=== PATIENT | female | born 1960 | race Caucasian/White ===

== ENCOUNTER 2021-05-21 09:08 | Inpatient (IN) | payer OTHER ==
[~2021-05-21] VITALS: Ht 162.6 cm; Wt 120.7 kg
[2021-05-21] MEDS ORDERED: LOSA50 PO (09:37)
[2021-05-21] MEDS ORDERED: AMLO5 PO (09:38)
[2021-05-21 10:38] LABS: Influenza A, PCR NEGATIVE (NEGATIVE); Influenza B, PCR NEGATIVE (NEGATIVE); Resp Syncytial Virus, PCR NEGATIVE (NEGATIVE)
[2021-05-21 10:41] LABS: SARS-Cov-2 (COVID-19) PCR, MMC POSITIVE (NEGATIVE)
[2021-05-21 11:17] LABS: BASOPHILS ABSOLUTE AUTO 0.05 K/mm3 (0.00-0.23); BASOPHILS PERCENT AUTO 0 % (0-2); EOSINOPHILS ABSOLUTE AUTO 0.01 K/mm3 (0.00-0.68); EOSINOPHILS PERCENT AUTO 0 % (0-6); Hematocrit 44.2 % (33.0-51.0); Hemoglobin 14.5 g/dL (11.5-16.0); IMMATURE GRAN ABSOLUTE AUTO 0.09 K/mm3 (0.00-0.10); IMMATURE GRAN PERCENT AUTO 1 % (0-1); LYMPHOCYTES ABSOLUTE AUTO 1.01 K/mm3 (0.84-5.20); LYMPHOCYTES PERCENT AUTO 6 % (21-46); MONOCYTES ABSOLUTE AUTO 0.64 K/mm3 (0.16-1.47); MONOCYTES PERCENT AUTO 4 % (4-13); Mean Corpuscular HGB 29.1 pg (26.0-34.0); Mean Corpuscular HGB Conc 32.8 g/dL (31.5-36.5); Mean Corpuscular Volume 89 fL (80-100); Mean Platelet Volume 10.8 fL (9.1-12.4); NEUTROPHILS ABSOLUTE AUTO 14.24 K/mm3 (1.96-9.15); NEUTROPHILS PERCENT AUTO 89 % (41-73); Platelet Count 362 K/mm3 (150-400); RDW Coefficient Variation 12.4 % (11.7-14.2); RDW Standard Deviation 40.2 fL (35.1-46.3); Red Blood Cell Count 4.99 M/mm3 (3.80-5.20); White Blood Cell Count 16.04 K/mm3 (4.00-11.30)
[2021-05-21 11:37] LABS: Alanine Aminotransfer (ALT/SGP 26 U/L (12-78); Albumin, Blood 3.7 g/dL (3.4-5.0); Alk Phos 93 U/L (50-136); Anion Gap 8 mmol/L (6-16); Aspartate Aminotrans (AST/SGOT 15 U/L (12-37); Bilirubin, Total 0.4 mg/dL (0.1-1.0); Blood Urea Nitrogen 9 mg/dL (8-24); Bun/Creatinine Ratio 13.6 (12.0-20.0); CO2, Blood 23 mmol/L (21-32); Calcium, Blood 9.8 mg/dL (8.5-10.1); Chloride, Blood 108 mmol/L (98-108); Creatinine, Blood 0.66 mg/dL (0.40-1.00); Globulin, Blood 3.6 g/dL (2.2-4.0); Glomerular Filtration Rate >60 (60-); Glucose, Blood 180 mg/dL (70-99); Potassium, Blood 4.1 mmol/L (3.5-5.5); Sodium, Blood 139 mmol/L (136-145); Total Protein, Blood 7.3 g/dL (6.4-8.2)
[2021-05-21 14:07] LABS: Anti-Xa UFH, PHA Monitoring <0.10 IU/mL; International Normalized Ratio 1.14; Prothrombin Time Results 11.9 Sec (9.7-11.5)
--- NOTE | 2021-05-22 05:34 | NUR ---
SHIFT SUMMARY PT ALERT AND ORIENTED. DENIES CHEST PAIN/PRESSURE. VITAL ARE STABLE AND IS ON ROOM AIR WITH SATS ABOVE 92%. PT DID HAVE LEFT UPPER BACK PAIN POST OP AND WAS MEDICATED WITH MED PER EMAR. FEM STOP WAS OFF AT 030 AND RIGHT FEM SITE WNL, RANJAN DRESSING APPLIED. TR BAND DEFLATED AND TEGADERM APPLIED AT 0040, RIGHT RADIAL SITE WNL. CALL LIGHT IS WITHIN REACH.
[2021-05-22] MEDS ORDERED: ATOR80 PO (12:15)
[2021-05-22] MEDS ORDERED: ASPI81CH PO (12:15)
[2021-05-22] MEDS ORDERED: CLOP75 PO (12:16)
[2021-05-22] MEDS ORDERED: Isosorbide Mono30 MG PO (12:17)
[2021-05-22] MEDS ORDERED: METO50ER PO (12:17)
== END 2021-05-22 12:50 | disposition home or self-care (01) | DRG 246 ==
LOC: ER 09:08 → PCU 13:06
PROVIDERS: Physician Assistant; ADMIT Internal Medicine
PROC: 027035Z Dilation of Coronary Artery, One Artery with Two Drug-eluting Intraluminal Devices, Percutaneous Approach (ICD-10-PCS; principal; 2021-05-21)
PROC: 4A023N7 Measurement of Cardiac Sampling and Pressure, Left Heart, Percutaneous Approach (ICD-10-PCS; 2021-05-21)
PROC: B2111ZZ Fluoroscopy of Multiple Coronary Arteries using Low Osmolar Contrast (ICD-10-PCS; 2021-05-21)
PROC: 8E0ZXY6 Isolation (ICD-10-PCS; 2021-05-21)
DX: I21.4 Non-ST elevation (NSTEMI) myocardial infarction (principal); U07.1 COVID-19; Z68.42 Body mass index [BMI] 45.0-49.9, adult; I25.10 Atherosclerotic heart disease of native coronary artery without angina pectoris; D72.829 Elevated white blood cell count, unspecified; I10 Essential (primary) hypertension; R73.9 Hyperglycemia, unspecified; E78.5 Hyperlipidemia, unspecified; E66.01 Morbid (severe) obesity due to excess calories; Z79.82 Long term (current) use of aspirin; Z79.899 Other long term (current) drug therapy; Z88.2 Allergy status to sulfonamides
CPT/HCPCS: 0241U; 36415; 71045; 76937; 80053; 83690; 83880; 84145; 84443; 84484; 85025; 85347; 85520; 85610; 86850; 86900; 86901; 93005; 93010; 93454; 96374; 96375; 99152; 99153; 99285-25; A9270; C1725; C1760; C1769; C1874; C1887; C1894; C8929; C9600; C9601; J0360; J0690; J1644; J2250; J2270; J2405; J3010; J7030; J7050; Q9957; Q9967

== ENCOUNTER 2023-01-27 11:09 | Emergency (ER) | payer OTHER ==
[~2023-01-27] VITALS: Ht 162.6 cm; Wt 108.9 kg
[~2023-01-27 11:09] MED LIST: AMLO5 PO; ASPI81CH PO; ATOR80 PO; CLOP75 PO; Isosorbide Mono30 MG PO; LOSA50 PO; METO50ER PO
[2023-01-27 11:15] VITALS: BP 155/98
[2023-01-27] MEDS ORDERED: MUPIROCIN1 G2 TOP (12:12)
== END 2023-01-27 12:17 | disposition home or self-care (01) ==
LOC: ER 11:09
DX: L03.316 Cellulitis of umbilicus (principal); I10 Essential (primary) hypertension; E78.00 Pure hypercholesterolemia, unspecified; Z88.2 Allergy status to sulfonamides; Z79.82 Long term (current) use of aspirin; Z79.02 Long term (current) use of antithrombotics/antiplatelets; Z79.899 Other long term (current) drug therapy
CPT/HCPCS: 99283